=== PATIENT | female | born 1955 | race Caucasian/White ===

== ENCOUNTER → 2016-04-29 | Outpatient (CLI) | payer OTHER | LOC: FIMAGING 12:14 | PROVIDERS: ATTEND Family Medicine | DX: R07.89 Other chest pain (principal); R06.00 Dyspnea, unspecified ==

== ENCOUNTER → 2016-06-03 | Outpatient (CLI) | payer OTHER | LOC: BRMIMAGING 12:42 | PROVIDERS: ATTEND Surgery | DX: Z12.31 Encounter for screening mammogram for malignant neoplasm of breast (principal); Z85.3 Personal history of malignant neoplasm of breast | CPT/HCPCS: G0202 ==

== ENCOUNTER → 2017-06-16 | Outpatient (CLI) | payer OTHER | LOC: BRMIMAGING 10:46 | PROVIDERS: ATTEND Nurse Practitioner Family | DX: Z12.31 Encounter for screening mammogram for malignant neoplasm of breast (principal); Z85.3 Personal history of malignant neoplasm of breast ==

== ENCOUNTER → 2017-11-01 | Outpatient (CLI) | payer OTHER | LOC: FIMAGING 08:54 | PROVIDERS: ATTEND Internal Medicine Hematology & Oncology | DX: N64.4 Mastodynia (principal); Z85.3 Personal history of malignant neoplasm of breast ==